=== PATIENT | female | born 1945 | race Caucasian/White ===

== ENCOUNTER 2017-02-27 07:55 | Day surgery (SDC) | payer MEDICARE ==
[~2017-02-27] VITALS: Ht 165.1 cm; Wt 107.8 kg
[~2017-02-27 07:55] MED LIST: ALBU6.7H INH; ASPI-621 PO; DOCU-131 PO; ENAL10TA PO; FURO-92 PO; FURO40TA6 PO; OMEP40CA6 PO; POTA20TA14 PO; SIMV40TA3 PO; WARF7.5T PO-COUM
[2017-02-27 08:55] VITALS: BP 145/80
[2017-02-27] MEDS ORDERED: SODIUM CHLORIDE 0.9% 1,000 ML IV SCH (08:56)
[2017-02-27] MEDS ORDERED: LIDOCAINE 1%, 20ML ONE (09:14)
[2017-02-27] MEDS ORDERED: NALOXONE 1 MG/ML, 2ML ONE (09:21)
[2017-02-27] MEDS ORDERED: FENTANYL PF 100 MCG/2ML ONE (09:21)
[2017-02-27] MEDS ORDERED: FLUMAZENIL 0.1 MG/1 ML, 5ML ONE (09:21)
[2017-02-27] MEDS ORDERED: MIDAZOLAM 1 MG/ML, 5ML ONE (09:21)
== END 2017-02-27 12:00 ==
LOC: OUT 07:55
PROVIDERS: ATTEND Internal Medicine Critical Care Medicine
DX: J98.4 Other disorders of lung (principal); I10 Essential (primary) hypertension; J44.9 Chronic obstructive pulmonary disease, unspecified; Z88.6 Allergy status to analgesic agent
CPT/HCPCS: 32405; 71010; 77012; 88305; 99156; J2250; J3010; J3490; J7030; 99157; J2310

== ENCOUNTER → 2017-04-28 | Outpatient (CLI) | payer MEDICARE ==
[~2017-04-28] MED LIST changes: +OMNIPAQUE 350 MG/ML, 100ML BOTTLE ONE
== END | disposition home or self-care (01) ==
LOC: CFH 12:05
PROVIDERS: ATTEND Internal Medicine Critical Care Medicine
DX: R91.1 Solitary pulmonary nodule (principal); K76.89 Other specified diseases of liver; E27.8 Other specified disorders of adrenal gland; K80.20 Calculus of gallbladder without cholecystitis without obstruction; Z95.2 Presence of prosthetic heart valve
CPT/HCPCS: 71260; Q9967

== ENCOUNTER 2017-08-28 11:40 | Day surgery (SDC) | payer MEDICARE ==
[~2017-08-28] VITALS: Ht 165.1 cm; Wt 113.7 kg
[2017-08-28 09:59] VITALS: BP 156/112
[2017-08-28 10:09] LABS: INTERNATIONAL NORMALIZED RATIO 0.99 (0.93-1.1); PROTHROMBIN TIME 10.2 Seconds (9.6-11.5)
[2017-08-28 10:11] LABS: CREATININE 0.85 mg/dL (0.55-1.02)
[~2017-08-28 11:40] MED LIST changes: +ASPI-496 PO; +FENTANYL PF 100 MCG/2ML ONE; +FERR324T5 PO; +FLUMAZENIL 0.1 MG/1 ML, 5ML ONE; +FURO20TA3 PO; +MIDAZOLAM 1 MG/ML, 2ML ONE; +NALOXONE 1 MG/ML, 2ML ONE; +SODIUM CHLORIDE 0.9% 1,000 ML IV SCH
== END 2017-08-28 15:00 ==
LOC: SDC 11:40
PROVIDERS: ATTEND Internal Medicine Gastroenterology
DX: C22.7 Other specified carcinomas of liver (principal)
CPT/HCPCS: 36415; 47000; 71260; 74177; 77012; 82565; 85610; 88307; 99156; J2250; J3010; J7030; Q9967; 88341; 88342; 88360; 99157; G0461; J2310

== ENCOUNTER → 2017-09-25 | Outpatient (CLI) | payer MEDICARE ==
[~2017-09-25] MED LIST changes: -FENTANYL PF 100 MCG/2ML ONE; -FLUMAZENIL 0.1 MG/1 ML, 5ML ONE; -MIDAZOLAM 1 MG/ML, 2ML ONE; -NALOXONE 1 MG/ML, 2ML ONE; -OMNIPAQUE 350 MG/ML, 100ML BOTTLE ONE; -SODIUM CHLORIDE 0.9% 1,000 ML IV SCH
== END | disposition home or self-care (01) ==
LOC: PETCFH 10:40
PROVIDERS: ATTEND Internal Medicine Hematology & Oncology
DX: G93.89 Other specified disorders of brain (principal); J34.1 Cyst and mucocele of nose and nasal sinus; M54.5 Low back pain; C34.90 Malignant neoplasm of unspecified part of unspecified bronchus or lung
CPT/HCPCS: 70553; 78306; A9503; A9585

== ENCOUNTER 2017-10-13 09:56 | Day surgery (SDC) | payer MEDICARE ==
[~2017-10-13] VITALS: Ht 165.1 cm; Wt 111.1 kg
[2017-10-13 10:24] VITALS: BP 150/80
[2017-10-13] MEDS ORDERED: CEFAZOLIN PMX 1GM/50ML 50 ML IV STA (10:44)
[2017-10-13] MEDS ORDERED: SODIUM CHLORIDE 0.9% 1,000 ML IV SCH (10:44)
[2017-10-13] MEDS ORDERED: CEFAZOLIN PMX 1GM/50ML 50 ML ONE (10:49)
[2017-10-13] MEDS ORDERED: PLEASE ENTER ALLERGIES MC SCH (11:00)
[2017-10-13] MEDS ORDERED: FENTANYL PF 100 MCG/2ML ONE (11:08)
[2017-10-13] MEDS ORDERED: MIDAZOLAM 1 MG/ML, 5ML ONE (11:09)
[2017-10-13] MEDS ORDERED: NALOXONE 1 MG/ML, 2ML ONE (11:09)
[2017-10-13] MEDS ORDERED: FLUMAZENIL 0.1 MG/1 ML, 5ML ONE (11:09)
[2017-10-13] MEDS ORDERED: LIDOCAINE-MPF 1%, 5ML ONE ×3 (11:10→11:19)
== END 2017-10-13 13:00 ==
LOC: OUT 09:56
PROVIDERS: ATTEND Internal Medicine Hematology & Oncology
DX: Z45.2 Encounter for adjustment and management of vascular access device (principal); C78.00 Secondary malignant neoplasm of unspecified lung; I10 Essential (primary) hypertension; E78.00 Pure hypercholesterolemia, unspecified; K21.9 Gastro-esophageal reflux disease without esophagitis; D50.9 Iron deficiency anemia, unspecified; J44.9 Chronic obstructive pulmonary disease, unspecified; Z90.710 Acquired absence of both cervix and uterus; Z98.890 Other specified postprocedural states
CPT/HCPCS: 36561; 76937; 77001; 99156; 99157; C1788; J0690; J1642; J2250; J3010; J7030; J2310

== ENCOUNTER → 2017-11-30 | Outpatient (CLI) | payer MEDICARE ==
[~2017-11-30] MED LIST changes: +OMNIPAQUE 350 MG/ML, 100ML BOTTLE ONE
== END | disposition home or self-care (01) ==
LOC: RAD 11:47
PROVIDERS: ATTEND Internal Medicine Hematology & Oncology
DX: K76.9 Liver disease, unspecified (principal); K80.20 Calculus of gallbladder without cholecystitis without obstruction; E27.8 Other specified disorders of adrenal gland; R91.1 Solitary pulmonary nodule; C34.32 Malignant neoplasm of lower lobe, left bronchus or lung
CPT/HCPCS: 71260; 74177; Q9967

== ENCOUNTER → 2018-03-16 | Outpatient (CLI) | payer MEDICARE ==
[~2018-03-16] MED LIST changes: +PROC5TAB40 PO
== END | disposition home or self-care (01) ==
LOC: CFH 12:15
PROVIDERS: ATTEND Internal Medicine Hematology & Oncology
DX: R91.1 Solitary pulmonary nodule (principal); J98.4 Other disorders of lung; R59.0 Localized enlarged lymph nodes; C34.32 Malignant neoplasm of lower lobe, left bronchus or lung; Z87.891 Personal history of nicotine dependence
CPT/HCPCS: 71260; 74177; Q9967

== ENCOUNTER 2018-07-12 11:51 | Outpatient (CLI) | payer MEDICARE ==
[~2018-07-12 11:51] MED LIST changes: -ASPI-621 PO; +ASPI81TA45 PO; -OMNIPAQUE 350 MG/ML, 100ML BOTTLE ONE
[2018-07-12] MEDS ORDERED: OMNIPAQUE 350 MG/ML, 100ML BOTTLE ONE (14:37)
== END 2018-07-12 23:59 | disposition home or self-care (01) ==
LOC: RAD 11:51
PROVIDERS: ATTEND Internal Medicine Hematology & Oncology
DX: C34.32 Malignant neoplasm of lower lobe, left bronchus or lung (principal); R91.1 Solitary pulmonary nodule; I51.7 Cardiomegaly; I70.0 Atherosclerosis of aorta; R59.0 Localized enlarged lymph nodes; K76.0 Fatty (change of) liver, not elsewhere classified; K80.20 Calculus of gallbladder without cholecystitis without obstruction
CPT/HCPCS: 71260; 74177; Q9967